=== PATIENT | female | born 1940 | race Caucasian/White ===

== ENCOUNTER → 2018-02-06 | Outpatient (CLI) | payer MEDICARE, OTHER ==
[~2018-02-06] MED LIST: FENTANYL PF 100 MCG/2ML ONE; MIDAZOLAM 1 MG/ML, 5ML ONE
== END ==
LOC: RAD 10:33
PROVIDERS: ATTEND Specialist
DX: G45.8 Other transient cerebral ischemic attacks and related syndromes (principal); H54.61 Unqualified visual loss, right eye, normal vision left eye
CPT/HCPCS: 70551; 99156; 99157; J2250; J3010